=== PATIENT | male | born 1935 | race Caucasian/White ===

== ENCOUNTER 2017-10-16 14:27 | Emergency (ER) | payer OTHER, MEDICARE ==
[~2017-10-16] VITALS: Ht 177.8 cm; Wt 83.9 kg
[~2017-10-16 14:27] MED LIST: FLEXERIL10 MG PO; INDOCIN25 MG PO; MOTRIN800 MG PO; PROVENTIL0.09 MG/AC IH; VICODIN ES 7501 TAB PO; ZITHROMAX Z PA250 MG PO
== END 2017-10-16 16:56 | disposition home or self-care (01) ==
LOC: ED 14:27
DX: M25.552 Pain in left hip (principal); F10.10 Alcohol abuse, uncomplicated

== ENCOUNTER 2019-10-07 11:57 | Inpatient (IN) | payer OTHER ==
[~2019-10-07] VITALS: Ht 177.8 cm; Wt 80.1 kg
[2019-10-07 11:58] VITALS: BP 129/63
[2019-10-07 12:24] LABS: BASO % 0.4 % (0.0-1.0); EOS % 0.8 % (1.0-4.0); HEMOGLOBIN 14.3 g/dl (14.0-18.0); LYMPH # 0.8 10*3/uL (1.3-4.4); LYMPH % 16.6 % (27.0-41.0); MEAN CELL VOLUME 93.9 fl (80.0-94.0); MEAN CORPUSCULAR HGB 31.2 pg (27.0-31.0); MEAN CORPUSCULAR HGB CONC 33.3 g/dl (33.0-37.0); MEAN PLATELET VOLUME 9.4 fl (9.6-12.3); MONO # 0.6 10*3/uL (0.1-1.0); MONO % 11.7 % (3.0-9.0); NEUT # 3.5 10*3/uL (2.3-7.9); NEUT % 70.1 % (47.0-73.0); PLATELET COUNT AUTOMATED 176 10*3/uL (130-400); RED BLOOD COUNT 4.58 10*6/uL (4.50-5.90); WHITE BLOOD COUNT 4.9 10*3/uL (4.8-10.8)
[2019-10-07 12:33] LABS: ACT PARTIAL THROMBO TIME 24.9 SECONDS (20.0-32.1)
[2019-10-07 12:40] LABS: ALBUMIN 3.8 gm/dl (3.1-4.5); ALKALINE PHOSPHATASE 129 U/L (45-117); BUN 22 mg/dl (7-24); CHLORIDE 109 mmol/L (98-107); CREATININE 1.16 mg/dL (0.70-1.30); LIPASE 242 U/L (73-393); POTASSIUM 3.7 mmol/L (3.5-5.1); SGOT/AST 37 IU/L (3-35); SGPT/ALT 33 U/L (12-78); SODIUM 139 mmol/L (136-145); TOTAL PROTEIN 7.6 gm/dL (6.4-8.2)
[2019-10-07 12:44] LABS: TROPONIN I < 0.015 ng/ml (<0.045)
--- NOTE | 2019-10-07 15:21 | NUR ---
NURSE-NURSE REPORT RECEIVED FROM LOU FOSTER.
[2019-10-07 15:47] VITALS: BP 129/60
[2019-10-07 15:50] VITALS: BP 120/54
--- NOTE | 2019-10-07 19:31 | NUR ---
PATIENT IS RESTING IN BED WITH EASY AND REGULAR RESPERS ON ROOM AIR. ASSESSMENT IS COMPLETE WITH NO C/O OR S/S OF DISTRESS NOTED AT THIS TIME. BED IS LOW, LOCKED, AND CALL LIGHT IS WITHIN REACH. WILL CONTINUE TO MONITOR, SEE SHIFT ASSESSMENT.
[2019-10-07 20:00] VITALS: BP 122/48
[2019-10-08] VITALS: BP 111/71
--- NOTE | 2019-10-08 01:04 | NUR ---
24 HR. CHART CHECK COMPLETE.
--- NOTE | 2019-10-08 03:29 | NUR ---
PATIENT SLEEPING, CALL LIGHT IS WITHIN REACH.
[2019-10-08 06:54] LABS: BASO % 0.5 % (0.0-1.0); EOS # 0.1 10*3/uL (0.0-0.4); EOS % 2.5 % (1.0-4.0); HEMATOCRIT 41.3 % (42.0-52.0); HEMOGLOBIN 13.5 g/dl (14.0-18.0); LYMPH # 0.9 10*3/uL (1.3-4.4); LYMPH % 23.9 % (27.0-41.0); MEAN CELL VOLUME 94.1 fl (80.0-94.0); MEAN CORPUSCULAR HGB 30.8 pg (27.0-31.0); MEAN CORPUSCULAR HGB CONC 32.7 g/dl (33.0-37.0); MEAN PLATELET VOLUME 9.9 fl (9.6-12.3); MONO # 0.5 10*3/uL (0.1-1.0); NEUT # 2.4 10*3/uL (2.3-7.9); NEUT % 59.8 % (47.0-73.0); PLATELET COUNT AUTOMATED 164 10*3/uL (130-400); RED BLOOD COUNT 4.39 10*6/uL (4.50-5.90); RED CELL DISTRI WIDTH 13.6 % (0-14.5); WHITE BLOOD COUNT 3.9 10*3/uL (4.8-10.8)
[2019-10-08 07:27] LABS: ALBUMIN 3.5 gm/dl (3.1-4.5); ALKALINE PHOSPHATASE 108 U/L (45-117); BUN 18 mg/dl (7-24); CHLORIDE 109 mmol/L (98-107); CHOLESTEROL 110 mg/dL (<200); CREATININE 0.93 mg/dL (0.70-1.30); FREE T4 1.02 ng/dl (0.76-1.46); HDL CHOLESTEROL 31 mg/dl (40-60); LDL CHOLESTEROL 57 mg/dL (9-159); PHOSPHOROUS 2.8 mg/dL (2.5-4.9); SGOT/AST 31 IU/L (3-35); SGPT/ALT 29 U/L (12-78); SODIUM 141 mmol/L (136-145); TOTAL PROTEIN 6.9 gm/dL (6.4-8.2); TRIGLYCERIDES 112 mg/dl (<150); VLDL CHOLESTEROL 22 mg/dL (6-40)
[2019-10-08 07:59] LABS: VITAMIN D, 25-HYDROXY 37.6 ng/mL (30-100)
[2019-10-08 08:00] VITALS: BP 118/59
--- NOTE | 2019-10-08 08:00 | NUR ---
Patient resting quietly with no c/o discomfort. Respirations easy and regular. Vital signs stable. No overt distress. JAN LEW R
--- NOTE | 2019-10-08 09:15 | NUR ---
Notified Bebeto at the [facility] of admission.
--- NOTE | 2019-10-08 10:30 | NUR ---
Penciller in to talk to patient. Patient states lives at home alone with his family checking in on him. There are 8-9 steps in the home. Physician: Dr. Laura Alvarado Pharmacy: [facility] Home health services: none Patient's level of ADLs: INDEPENDENT Patient has working utilities: yes DME: none Follow-up physician's appointment after d/c: will be made by the hospitalist nurse director upon discharge Does patient want to access PORTAL?: no Discharge plan discussed with patient. He lives at home alone with his family checking in on him. He is independent in his ADLs and ambulation. Discussed home health care services and he denies any home need at this time. When medically stable he will be discharged to home. His son will provide transportation on discharge. MICKY CHACON
--- NOTE | 2019-10-08 10:45 | NUR ---
[facility]
--- NOTE | 2019-10-08 12:39 | NUR ---
Discharge instructions reviewed with patient/family. Patient receptive and verbalizes understanding. Follow-up care arranged. Written instructions given to patient/family. JAN LEW
== END 2019-10-08 12:39 | disposition home or self-care (01) | DRG 379 ==
LOC: ED 11:57 → 5E 14:54 → EDHOLD 14:54 → 5E 15:39
PROVIDERS: Emergency Medicine; Registered Nurse; ADMIT Family Medicine
DX: K92.2 Gastrointestinal hemorrhage, unspecified (principal); E87.8 Other disorders of electrolyte and fluid balance, not elsewhere classified; R19.7 Diarrhea, unspecified; R74.0 Nonspecific elevation of levels of transaminase and lactic acid dehydrogenase [LDH]; R74.8 Abnormal levels of other serum enzymes; Z96.619 Presence of unspecified artificial shoulder joint; Z96.653 Presence of artificial knee joint, bilateral; Z90.49 Acquired absence of other specified parts of digestive tract; Z80.8 Family history of malignant neoplasm of other organs or systems; Z98.49 Cataract extraction status, unspecified eye

== ENCOUNTER 2021-04-10 11:16 | Emergency (ER) | payer OTHER ==
[~2021-04-10] VITALS: Ht 177.8 cm; Wt 82.6 kg
[2021-04-10] MEDS ORDERED: HYDROCODONE-AC1 EAC1 PO (13:47)
== END 2021-04-10 14:40 | disposition home or self-care (01) ==
LOC: ED 11:16
DX: S00.81XA Abrasion of other part of head, initial encounter (principal); M79.641 Pain in right hand; R60.0 Localized edema; Z96.619 Presence of unspecified artificial shoulder joint; Z96.653 Presence of artificial knee joint, bilateral; Z90.49 Acquired absence of other specified parts of digestive tract; Z90.89 Acquired absence of other organs; W10.8XXA Fall (on) (from) other stairs and steps, initial encounter; Y93.89 Activity, other specified; Y92.89 Other specified places as the place of occurrence of the external cause; Y99.8 Other external cause status

== ENCOUNTER 2022-03-28 08:01 | Emergency (ER) | payer OTHER ==
[~2022-03-28] VITALS: Ht 177.8 cm; Wt 84.8 kg
[~2022-03-28 08:01] MED LIST changes: +HYDROCODONE-AC1 EAC1 PO
[2022-03-28] MEDS ORDERED: CYCLOBENZAPRINE10 MG PO (08:41)
[2022-03-28] MEDS ORDERED: PREDNISONE10 MG PO (08:41)
== END 2022-03-28 08:51 | disposition home or self-care (01) ==
LOC: ED 08:01
DX: S39.012A Strain of muscle, fascia and tendon of lower back, initial encounter (principal); Z90.89 Acquired absence of other organs; Z98.890 Other specified postprocedural states; Z90.49 Acquired absence of other specified parts of digestive tract; X50.1XXA Overexertion from prolonged static or awkward postures, initial encounter; Y93.89 Activity, other specified; Y92.89 Other specified places as the place of occurrence of the external cause; Y99.8 Other external cause status